=== PATIENT | male | born 1950 | race Caucasian/White ===

== ENCOUNTER 2019-03-16 13:00 | Outpatient (RCR) | payer MEDICARE ==
[2019-01-03 13:00] VITALS: BP 140/74
[2019-01-03 14:43] VITALS: BP 142/72
[2019-01-05 13:00] VITALS: BP 134/62
[2019-01-10 13:00] VITALS: BP 160/60
[2019-01-10 13:55] VITALS: BP 130/68
[2019-01-12 12:52] VITALS: BP 140/60
[2019-01-12 13:55] VITALS: BP 130/72
[2019-01-17 13:05] VITALS: BP 148/52
[2019-01-17 14:00] VITALS: BP 120/50
[2019-01-19 12:55] VITALS: BP 122/60
[2019-01-19 14:00] VITALS: BP 128/58
[2019-01-24 12:58] VITALS: BP 134/82
[2019-01-24 14:05] VITALS: BP 130/88
[2019-01-26 13:00] VITALS: BP 140/90
[2019-01-26 14:30] VITALS: BP 152/60
[2019-02-07 13:00] VITALS: BP 158/78
[2019-02-07 13:59] VITALS: BP 148/76
[2019-02-09 13:00] VITALS: BP 125/60
[2019-02-09 14:08] VITALS: BP 127/80
[2019-02-14 12:55] VITALS: BP 160/50
[2019-02-14 14:01] VITALS: BP 142/78
[2019-02-16 12:50] VITALS: BP 142/60
[2019-02-16 13:57] VITALS: BP 150/60
[2019-03-02 12:55] VITALS: BP 140/60
[2019-03-02 13:45] VITALS: BP 140/82
[2019-03-07 13:00] VITALS: BP 140/60
[2019-03-07 13:55] VITALS: BP 160/50
[2019-03-09 12:45] VITALS: BP 140/70
[2019-03-09 13:55] VITALS: BP 122/80
[2019-03-14 13:00] VITALS: BP 130/80
[2019-03-14 14:09] VITALS: BP 170/60
[2019-03-16 13:00] VITALS: BP 170/60
[2019-03-16 13:49] VITALS: BP 180/50
[2019-03-23 12:50] VITALS: BP 120/70
[2019-03-23 14:05] VITALS: BP 160/60
[2019-03-30 13:00] VITALS: BP 163/60
[2019-03-30 14:00] VITALS: BP 148/50
== END 2019-03-28 | disposition home or self-care (01) ==
LOC: PULM 13:00
PROVIDERS: ATTEND Internal Medicine Pulmonary Disease
DX: J44.9 Chronic obstructive pulmonary disease, unspecified (principal); J96.12 Chronic respiratory failure with hypercapnia; E66.2 Morbid (severe) obesity with alveolar hypoventilation; I27.0 Primary pulmonary hypertension
CPT/HCPCS: 99211